=== PATIENT | female | born 1980 | race African-American/Black ===

== ENCOUNTER 2021-12-07 15:46 | Emergency (ER) | payer OTHER ==
[~2021-12-07] VITALS: Ht 172.7 cm; Wt 95.3 kg
[2021-12-07] MEDS ORDERED: PRED50TA PO (17:00)
[2021-12-07] MEDS ORDERED: HYDR-3972 PO (17:00)
[2021-12-07] MEDS ORDERED: HYDROCODONE/APAP 5-325MG TABLET PO ONE (17:15)
[2021-12-07] MEDS ORDERED: predniSONE 50 MG TABLET PO ONE (17:15)
--- NOTE | 2021-12-07 17:15 | NUR ---
Patient discharged to home in stable condition. Written and verbal after care instructions given. Patient verbalizes understanding of instructions. Stressed follow up or return to ER for worsening s/s.
[2021-12-07 17:16] VITALS: BP 132/89
[2021-12-07] MEDS ORDERED: HYDROCODONE/APAP 5-325MG TABLET ONE (17:18)
[2021-12-07] MEDS ORDERED: predniSONE 50 MG TABLET ONE (17:18)
== END 2021-12-07 17:17 | disposition home or self-care (01) ==
LOC: ER 16:00
DX: J45.909 Unspecified asthma, uncomplicated (principal); Z86.16 Personal history of COVID-19
CPT/HCPCS: 99283; J7512; A4663

== ENCOUNTER 2021-12-09 23:09 | Emergency (ER) | payer OTHER ==
[~2021-12-09] VITALS: Ht 165.1 cm; Wt 94.3 kg
[~2021-12-09 23:09] MED LIST: HYDR-3972 PO; PRED50TA PO
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
[2021-12-10] MEDS ORDERED: ONDANSETRON 4 MG/2 ML VIAL IV ONE (00:15)
[2021-12-10] MEDS ORDERED: IV NORMAL SALINE 1000 ML BAG IV ONE ×2 (00:15→02:15)
[2021-12-10] MEDS ORDERED: KETOROLAC TROMETHAMINE 30 MG INJ IVP ONE (00:15)
[2021-12-10 00:37] LABS: HEMATOCRIT 41.3 % (31.2-41.9); MEAN CORPUSCULAR VOLUME 99.2 fL (75.5-95.3); PLATELET COUNT (AUTO) 312 K/uL (179-408)
[2021-12-10 00:40] LABS: *URINE HCG, QUAL NEGATIVE (NEGATIVE)
[2021-12-10 00:44] LABS: ALANINE AMINOTRANSFERASE 80 U/L (14-59); ALKALINE PHOSPHATASE 120 U/L (50-136); ASPARTATE AMINOTRANSFERASE 197 U/L (15-37); BILIRUBIN,DIRECT 0.2 mg/dL (0.0-0.2); BILIRUBIN,TOTAL 0.4 mg/dL (0.2-1.0); CARBON DIOXIDE 26 mmol/L (21-32); CREATININE 0.6 mg/dL (0.6-1.3); GLUCOSE 116 mg/dL (74-106); TOTAL PROTEIN, SERUM 7.6 g/dL (6.4-8.2); UREA NITROGEN, BLOOD 12 mg/dL (7-18)
[2021-12-10 01:12] LABS: CHLORIDE 103 mmol/L (98-107); POTASSIUM 3.6 mmol/L (3.5-5.1)
[2021-12-10] MEDS ORDERED: ONDANSETRON 4 MG/2 ML VIAL ONE ×2 (01:13→01:14)
[2021-12-10] MEDS ORDERED: KETOROLAC TROMETHAMINE 30 MG INJ ONE (01:13)
[2021-12-10] MEDS ORDERED: KETOROLAC TROMETHAMINE 15 MG INJ ONE (01:13)
[2021-12-10] MEDS ORDERED: BENZONATATE 100 MG CAPSULE PO ONE (01:15)
[2021-12-10] MEDS ORDERED: BENZONATATE 100 MG CAPSULE ONE (01:21)
--- NOTE | 2021-12-10 01:32 | NUR ---
Patient in bed, denies any acute distress noted at this time.
[2021-12-10] MEDS ORDERED: MORPHINE SULFATE 4 MG/1 ML DISP.SYRIN IV ONE (01:45)
[2021-12-10] MEDS ORDERED: MORPHINE SULFATE 4 MG/1 ML DISP.SYRIN ONE (01:51)
[2021-12-10] MEDS ORDERED: ONDA4TAB11 PO (03:59)
[2021-12-10] MEDS ORDERED: BENZ-13 PO (03:59)
[2021-12-10 04:13] VITALS: BP 145/88
--- NOTE | 2021-12-10 04:21 | NUR ---
Patient discharged to home in stable condition. Written and verbal after care instructions given. Patient verbalizes understanding of instructions. Stressed follow up or return to ER for worsening s/s. Patient wheeled out via w/c but is able to ambulate with steady gait.
== END 2021-12-10 04:21 | disposition home or self-care (01) ==
LOC: ER 23:10
DX: B34.9 Viral infection, unspecified (principal); Z20.822 Contact with and (suspected) exposure to COVID-19
CPT/HCPCS: 36415; 71045; 80048; 80076; 84703; 85025; 86403; 87070; 87400; 87426; 96361; 96374; 96375; 99284; J1885; J2270; J2405 ×2; U0003; J7030

== ENCOUNTER 2022-01-18 13:11 | Emergency (ER) | payer OTHER ==
[~2022-01-18] VITALS: Ht 165.1 cm; Wt 94.8 kg
[~2022-01-18 13:11] MED LIST changes: +BENZ-13 PO; +ONDA4TAB11 PO
[2022-01-18] MEDS ORDERED: ACETAMINOPHEN 325 MG TABLET PO ONE (14:00)
[2022-01-18] MEDS ORDERED: KETOROLAC TROMETHAMINE 30 MG INJ IM ONE (14:00)
[2022-01-18] MEDS ORDERED: KETOROLAC TROMETHAMINE 30 MG INJ ONE (14:02)
[2022-01-18] MEDS ORDERED: ACETAMINOPHEN ES 500 MG TABLET ONE (14:02)
--- NOTE | 2022-01-18 16:34 | NUR ---
PT WAS EVALUATED BY DR RODRIGUEZ. PT WAS D/C'd TO HOME. D/C INSTRUCTIONS GIVEN TO THE PT BY DR RODRIGUEZ.
[2022-01-18 16:35] VITALS: BP 142/79
[2022-01-18] MEDS ORDERED: NAPR-1009 PO (16:41)
[2022-01-18] MEDS ORDERED: HYDR-4209 PO (16:42)
== END 2022-01-18 16:36 | disposition home or self-care (01) ==
LOC: ER 13:13
DX: S09.90XA Unspecified injury of head, initial encounter (principal); Y04.0XXA Assault by unarmed brawl or fight, initial encounter; Y92.89 Other specified places as the place of occurrence of the external cause; Z85.3 Personal history of malignant neoplasm of breast; Z90.710 Acquired absence of both cervix and uterus
CPT/HCPCS: 70450; 70486; 96372; 99285; J1885; A4663; A9150

== ENCOUNTER 2022-01-21 23:58 | Inpatient (IN) | payer OTHER ==
[~2022-01-21] VITALS: Ht 165.1 cm; Wt 99.3 kg
[~2022-01-21 23:58] MED LIST changes: -BENZ-13 PO; -HYDR-3972 PO; +HYDR-4209 PO; +NAPR-1009 PO; -ONDA4TAB11 PO; -PRED50TA PO
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
[2022-01-22] MEDS ORDERED: ONDANSETRON ODT 4 MG TAB.RAPDIS SL ONE (00:15)
[2022-01-22] MEDS ORDERED: HYDROCODONE/APAP 10-325 MG TABLET PO ONE (00:15)
--- NOTE | 2022-01-22 00:22 | NUR ---
CALLED [facility]. SPOKE TO TAR MAN 727. WILL SEND UNIT TO INTERVIEW PT.
[2022-01-22] MEDS ORDERED: HYDROCODONE/APAP 10-325 MG TABLET ONE (00:23)
[2022-01-22] MEDS ORDERED: ONDANSETRON ODT 4 MG TAB.RAPDIS ONE (00:23)
[2022-01-22] MEDS ORDERED: HYDR-4209 PO (00:31)
--- NOTE | 2022-01-22 00:33 | NUR ---
Pt back from CT
[2022-01-22] MEDS ORDERED: ONDANSETRON 4 MG/2 ML VIAL IV ONE ×2 (01:00→03:45)
[2022-01-22] MEDS ORDERED: MORPHINE SULFATE 2 MG/1 ML DISP.SYRIN IV ONE (01:00)
[2022-01-22] MEDS ORDERED: MORPHINE SULFATE 4 MG/1 ML DISP.SYRIN ONE (01:23)
[2022-01-22] MEDS ORDERED: ONDANSETRON 4 MG/2 ML VIAL ONE ×2 (01:23→03:55)
[2022-01-22 01:32] LABS: HEMATOCRIT 40.7 % (31.2-41.9); MEAN CORPUSCULAR HEMOGLOBIN 33.6 uug (24.7-32.8); MEAN CORPUSCULAR VOLUME 99.2 fL (75.5-95.3); PLATELET COUNT (AUTO) 268 K/uL (179-408)
[2022-01-22 01:37] LABS: ETHANOL 159 MG/DL (0-0)
[2022-01-22 01:55] LABS: ALANINE AMINOTRANSFERASE 54 U/L (14-59); ALKALINE PHOSPHATASE 93 U/L (50-136); ASPARTATE AMINOTRANSFERASE 71 U/L (15-37); BILIRUBIN,DIRECT 0.1 mg/dL (0.0-0.2); BILIRUBIN,TOTAL 0.3 mg/dL (0.2-1.0); CARBON DIOXIDE 26 mmol/L (21-32); CHLORIDE 102 mmol/L (98-107); CREATININE 0.6 mg/dL (0.6-1.3); GLUCOSE 116 mg/dL (74-106); POTASSIUM 3.5 mmol/L (3.5-5.1); TOTAL PROTEIN, SERUM 7.7 g/dL (6.4-8.2); UREA NITROGEN, BLOOD 10 mg/dL (7-18)
[2022-01-22] MEDS ORDERED: ACETAMINOPHEN ES 500 MG TABLET PO ONE (02:15)
--- NOTE | 2022-01-22 02:19 | NUR ---
Dr. Murillo on Panel call from [facility] Dr. Pace
[2022-01-22] MEDS ORDERED: ACETAMINOPHEN ES 500 MG TABLET ONE (02:25)
[2022-01-22] MEDS ORDERED: levETIRAcetam IV 500 MG in IV DEXTROSE 5% 100 ML IV ONE (02:30)
[2022-01-22] MEDS ORDERED: levETIRAcetam 500 MG/5 ML VIAL IV ONE (02:40)
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
--- NOTE | 2022-01-22 03:09 | NUR ---
Funeral Limousine Driver Gentry dave #: [id number], unit number [id number]
[2022-01-22] MEDS ORDERED: HYDROMORPHONE 1 MG/1 ML DISP.SYRIN IV ONE ×2 (03:45→08:45)
[2022-01-22] MEDS ORDERED: HYDROMORPHONE 1 MG/1 ML DISP.SYRIN ONE ×2 (03:55→08:56)
--- NOTE | 2022-01-22 07:02 | NUR ---
Handoff report given to Mitzy PINA
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
--- NOTE | 2022-01-22 07:14 | NUR ---
RECIEVED PT IN BED, RESTING, VSS. WILL CONTINUE TO MONITOR THE PT.
--- NOTE | 2022-01-22 09:04 | NUR ---
CALLED [facility] TRANSFER FOR FOLLOW UP, LEFT A MESSAGE WITH ANSWERING MACHINE.
--- NOTE | 2022-01-22 09:30 | NUR ---
PT AWAKE, AXOX4, NO CHANGE IN NEURO STATUS
--- NOTE | 2022-01-22 10:20 | NUR ---
CALLED DR. CALLE AT HIS CELL [phone] AND LEFT A MESSAGE PER PAIGE HOROWITZ REQUEST.
--- NOTE | 2022-01-22 10:23 | NUR ---
CALLED [facility] AND LEFT A MESSAGE IN THE ANSWERING MESSAGE.
--- NOTE | 2022-01-22 10:58 | NUR ---
DASHA FROM [facility] TRANSFER CENTER CALLED AND SAID THAT THEY ARE NOT THE ONE TO AUTHORIZE THE TRANSFER, REFERRED THE CALL TO [employer] PU[employer] TECHNICIAN TO MAKE SURE THAT THE MESSAGE IS RELAYED
--- NOTE | 2022-01-22 11:00 | NUR ---
Received telephone call from Bonita from [facility] transfer center who stated they are at capacity and do not have any beds available for the pt at this time.
--- NOTE | 2022-01-22 11:06 | NUR ---
CALLED [facility] LEFT A MESSAGE REGARDING ADMITTING THE PT.
--- NOTE | 2022-01-22 11:06 | NUR ---
Received telephone call from Eda from [facility] who also stated they are at [facility] and do not have any beds available at this time.
[2022-01-22] MEDS ORDERED: ACETAMINOPHEN 325 MG TABLET PO PRN (11:30)
[2022-01-22] MEDS ORDERED: REMEDY ESSENTIAL ZINC PASTE 113 GM TP PRN (11:30)
[2022-01-22] MEDS ORDERED: MAGNESIUM HYDROXIDE 30 ML LIQUID UDC PO PRN (11:30)
--- NOTE | 2022-01-22 12:43 | NUR ---
pt transfered to floor in stable condition.
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
[2022-01-22] MEDS: HYDROMORPHONE 1 MG/1 ML DISP.SYRIN IV PRN ×3 (13:00→21:13)
[2022-01-22 13:25] VITALS: BP 120/79
--- NOTE | 2022-01-22 15:30 | NUR ---
SEEN BY DR CURRY FOR NEURO FOLLOW-UP WITH ORDER FOR FOLLOW-UP CT HEAD W/O CONTRAST IN AM FOR FURTHER MANAGEMENT. C/ OF NAUSEA, MEDICATED WITH ZOFRAN WITH GOOD RELIEF
[2022-01-22] MEDS: ONDANSETRON 4 MG/2 ML VIAL IV PRN (15:47)
[2022-01-22 16:00] VITALS: BP 121/68
--- NOTE | 2022-01-22 16:00 | NUR ---
PATIENT UP ON BEDSIDE COMMODE ABLE TO VOID VOLUNTARILY.
[2022-01-22 20:00] VITALS: BP 148/86
[2022-01-22] MEDS: levETIRAcetam IV 1,000 MG in IV DEXTROSE 5% 100 ML IV SCH (21:12)
[2022-01-22 22:00] VITALS: BP 128/80
--- NOTE | 2022-01-22 22:30 | NUR ---
[facility] Abhinav Ku called; updated with transfer; will call again for bed availability and insurance approval.
[2022-01-22] MEDS: HYDROCODONE/APAP 5-325MG TABLET PO PRN (23:36)
[2022-01-23] VITALS (7 sets, daily range): BP systolic 120–160; BP diastolic 60–96
[2022-01-23] MEDS: ONDANSETRON 4 MG/2 ML VIAL IV PRN ×2 (00:46→21:12)
[2022-01-23] MEDS: HYDROMORPHONE 1 MG/1 ML DISP.SYRIN IV PRN ×7 (00:46→21:12)
[2022-01-23] MEDS: HYDROCODONE/APAP 5-325MG TABLET PO PRN ×5 (05:12→21:12)
[2022-01-23 06:21] LABS: HEMATOCRIT 38.1 % (31.2-41.9); MEAN CORPUSCULAR HEMOGLOBIN 33.8 uug (24.7-32.8); MEAN CORPUSCULAR VOLUME 101.6 fL (75.5-95.3); PLATELET COUNT (AUTO) 257 K/uL (179-408)
[2022-01-23 06:42] LABS: CREATININE 0.7 mg/dL (0.6-1.3)
--- NOTE | 2022-01-23 08:00 | NUR ---
SEEN BY HOSPITALIST FOR FOLLOW-UP SEE NOTES. PATIENT STILL C/O ON AND OFF HEADACHE MORE ON THE RIGHT SIDE 8-9/10 PAIN LEVEL. NO NAUSEA AND VOMITING. BP WNL. NO SOB. CONTINUE NEURO OBSERVATION AND PAIN MANAGEMENT
[2022-01-23] MEDS: levETIRAcetam IV 1,000 MG in IV DEXTROSE 5% 100 ML IV SCH ×2 (08:20→20:50)
--- NOTE | 2022-01-23 13:03 | NUR ---
AWAITING DR VALDEZ FOR NEURO FOLLOW-UP, CONTINUE WITH PAIN MANAGEMENT
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
--- NOTE | 2022-01-23 16:15 | NUR ---
DR CURRY NOTIFIED REGARDING CT HEAD WITHOUT CONTRAST WITH ORDER TO START PT,OT,ST AND GET SW, CM TO GET INVOLVE FOR PLACEMENT IN PREPARATION FOR FUTURE DISCHARGE. DR CURRY THEN FURTHER SPOKE WITH PATIENT AND SISTER REGINO VIA PHONE REGARDING CT RESULTS AND PLAN OF TREATMENT. PATIENT AND SISTER UNDERSTAND EVERYTHING BEING DISCUSSED ON THE PHONE AND BOTH ARE COOPERATING WITH THE PLAN.
--- NOTE | 2022-01-23 20:00 | NUR ---
Received patient sitting upright in bed. AAOx4. In no apparent distress. Denies any SOB. Complain of pain, ice pack provided at this time. Patient was given both [place] and Dilaudid at 1710 by day shift nurse. Informed patient that this nurse will provide pain medication once its due and states understanding. NSR on tele with HR of 69/min. IV site on left AC intact and patent. Other needs assessed and attended to. Safety measure initiated and call light within reached.
[2022-01-23] MEDS: ATORVASTATIN 40 MG TABLET PO SCH (20:49)
[2022-01-24] VITALS (7 sets, daily range): BP systolic 158–179; BP diastolic 77–106
[2022-01-24] MEDS: HYDROCODONE/APAP 5-325MG TABLET PO PRN ×6 (01:12→21:18)
[2022-01-24] MEDS: HYDROMORPHONE 1 MG/1 ML DISP.SYRIN IV PRN ×6 (01:12→20:56)
[2022-01-24] MEDS: ONDANSETRON 4 MG/2 ML VIAL IV PRN ×3 (05:10→18:26)
--- NOTE | 2022-01-24 05:34 | NUR ---
Patient BP on right arm was 170/92. Patient was complaining of head pain. Dilaudid 1mg and [place] 5/325 PRN per order given. Retake her BP on left arm and was 177/106. Patient also stated that her pain medication is not that effective for her head pain. Patient also informed this nurse that she has Hx of borderline HTN and was taking Amlodipine and Lisinopril off and on for some years and had stop taking both this medication about a year ago. Informed RAIL CAR UNLOADER Morris. Awaiting for any new order.
--- NOTE | 2022-01-24 05:45 | NUR ---
LUL Caceres responded with no new order given.
--- NOTE | 2022-01-24 06:01 | NUR ---
NSR on tele with HR of 71/min. IV site on left AC remains intact and patent. Ice compress provided for head pain as well. Needs attended to and met. Assisted to BSC PRN. Safety measure maintained and call light within reached.
[2022-01-24 06:53] LABS: HEMATOCRIT 37.7 % (31.2-41.9); MEAN CORPUSCULAR HEMOGLOBIN 33.8 uug (24.7-32.8); MEAN CORPUSCULAR VOLUME 100.7 fL (75.5-95.3); PLATELET COUNT (AUTO) 244 K/uL (179-408)
[2022-01-24 07:17] LABS: CARBON DIOXIDE 27 mmol/L (21-32); CHLORIDE 99 mmol/L (98-107); CREATININE 0.6 mg/dL (0.6-1.3); GLUCOSE 121 mg/dL (74-106); MAGNESIUM 1.9 mg/dL (1.8-2.4); PHOSPHOROUS 2.6 mg/dL (2.5-4.9); POTASSIUM 3.8 mmol/L (3.5-5.1); UREA NITROGEN, BLOOD 9 mg/dL (7-18)
[2022-01-24] MEDS: levETIRAcetam IV 1,000 MG in IV DEXTROSE 5% 100 ML IV SCH (09:51)
[2022-01-24] MEDS ORDERED: hydrALAZINE HCL 25 MG TABLET PO ONE (13:00)
[2022-01-24] MEDS ORDERED: hydrALAZINE HCL 10 MG TABLET PO ONE (13:15)
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
--- NOTE | 2022-01-24 19:00 | NUR ---
Patient has elevated BP Aruna Nicole NP aware, patient still has headache pains and wanted more pain meds, Bonnie MCCARTY okeyed to give Dilaudin 1mg IV and [place] 1 tab po for pain, Patient asleep but arousable, cont to monitor.
--- NOTE | 2022-01-24 19:45 | NUR ---
Patient alert oriented, no sob no chest pain, tele monitor sinus rhythm, patient sbp elevated Aruna Nicole aware, orderd Norvasc 5mg po, patient on continue pain management, complain of headaches, will medicate as ordere, patient has change of LOC, cont to monitor.
[2022-01-24] MEDS: AMLODIPINE 5 MG TABLET PO SCH (19:53)
[2022-01-24] MEDS: ATORVASTATIN 40 MG TABLET PO SCH (20:03)
[2022-01-24] MEDS: levETIRAcetam 500 MG TABLET PO SCH (20:03)
[2022-01-25] VITALS (7 sets, daily range): BP systolic 130–179; BP diastolic 56–112
--- NOTE | 2022-01-25 01:05 | NUR ---
Patient is hard stick, notify Jason Caceres manager inpatient with order for midline insertion.
[2022-01-25] MEDS: HYDROMORPHONE 1 MG/1 ML DISP.SYRIN IV PRN ×6 (01:28→21:32)
[2022-01-25] MEDS: HYDROCODONE/APAP 5-325MG TABLET PO PRN ×6 (02:38→21:32)
--- NOTE | 2022-01-25 08:00 | NUR ---
RECEIVED PATIENT IN BED AWAKE ALERT AND ORIENTED X3, DENIES PAIN OR DISTRESS, ON AMIODARONE DRIP FOR RVR NOW AT 0.5MG/MIN. PATIENT STILL ON IN AND OUT SR/AFIB CONTROLLED. NPO OBSERVED FOR SURGERY RIGHT MALLEOLUS UNDER DR KIDD Addendum: 01/25/22 at 0908 by JOHN LAW RN ERROR
[2022-01-25] MEDS: AMLODIPINE 5 MG TABLET PO SCH (08:02)
[2022-01-25] MEDS: levETIRAcetam 500 MG TABLET PO SCH ×2 (08:02→21:28)
[2022-01-25] MEDS: ONDANSETRON 4 MG/2 ML VIAL IV PRN ×2 (08:38→15:57)
--- NOTE | 2022-01-25 10:17 | NUR ---
Patient left unit for CT Scan w/out contrast. Tele box still with patient.
--- NOTE | 2022-01-25 10:32 | NUR ---
Patient returned from CT Scan without contrast.
[2022-01-25] MEDS: SENNOSIDES/DOCUSATE SODIUM TABLET PO SCH (10:45)
[2022-01-25] MEDS ORDERED: hydrALAZINE HCL 50 MG TABLET PO SCH (12:30)
[2022-01-25] MEDS ORDERED: hydrALAZINE HCL 20 MG/1 ML VIAL IV PRN (12:30)
--- NOTE | 2022-01-25 14:00 | NUR ---
RESULTS OF CT HEAD NOTED BY HOSPITALIST SEE NOTES
[2022-01-25] MEDS: hydrALAZINE HCL 20 MG/1 ML VIAL IV PRN (16:26)
[2022-01-25] MEDS: DEXAMETHASONE 4 MG TABLET PO SCH (17:10)
--- NOTE | 2022-01-25 18:00 | NUR ---
LATEST BP 141/79, HOSPITALIST NOTIFIED OF HEADACHE 08/09, DILAUDID 2MG IV X1 GIVEN. OBSERVED. SR ON MONITOR
[2022-01-25] MEDS ORDERED: HYDROMORPHONE 2 MG/1 ML DISP.SYRIN IV ONE (18:30)
--- NOTE | 2022-01-25 19:35 | NUR ---
RECEIVED PATIENT ASLEEP BUT AROUSABLE, ALERT ORIENTED, NO CHANGE OF LOC, NO SOB NO CHEST PAIN, TELE MONITOR SINUS RHYTHM, CONT PAIN MANAGEMENT DUE TO HEADACHES, VS STABLE, CONT TO MONITOR.
[2022-01-25] MEDS: ATORVASTATIN 40 MG TABLET PO SCH (21:28)
--- NOTE | 2022-01-25 22:00 | NUR ---
NICO FROM [facility] ASK FOR UPDATE REGARDING PATIENT PRESENT NEURO CONDITION, STATED THAT STILL NO BEDS FOR THE PATIENT, AND REQUESTING TO ASK MD TO DO DISCHARGE SUMMARY, WILL ENDORSE IN AM.
[2022-01-26 00:19] VITALS: BP 154/90
[2022-01-26] MEDS: hydrALAZINE HCL 20 MG/1 ML VIAL IV PRN (01:39)
--- NOTE | 2022-01-26 01:39 | NUR ---
PATIENT HAS ELEVATED BP 1166/96 GIVEN APRESOLINE 20 MG IV, NO NAUSEA NO VOMITING. CONT ON PAIN MANAGEMENT, DUE TO HEADACHES, CONT TO MONITOR. Addendum: 01/26/22 at 0519 by TRUDI TERRY RN PATIENT HAS ELEVATED BP 1166/96 GIVEN APRESOLINE 20 MG IV, NO NAUSEA NO VOMITING. CONT ON PAIN MANAGEMENT, DUE TO HEADACHES, CONT TO MONITOR. CHARTING IN ERROR
[2022-01-26] MEDS: HYDROMORPHONE 1 MG/1 ML DISP.SYRIN IV PRN ×5 (01:40→21:08)
[2022-01-26] MEDS: HYDROCODONE/APAP 5-325MG TABLET PO PRN ×4 (01:40→21:07)
--- NOTE | 2022-01-26 01:59 | NUR ---
PATIENT HAS ELEVATED BP 166/96 GIVEN APRESOLINE 20 MG IV, NO NAUSEA NO VOMITING. CONT ON PAIN MANAGEMENT, DUE TO HEADACHES, CONT TO MONITOR
[2022-01-26 04:30] VITALS: BP 141/75
--- NOTE | 2022-01-26 05:21 | NUR ---
PATIENT ASLEEP BUT AROUSABLE, NO SOB NO CHEST PAIN, TELE SINUS RHYTHM, CONT PAIN MANAGEMENT DUE TO HEADACHES, BP STABLE, 141/75, NO N/V NOTED, CONT TO MONITOR.
--- NOTE | 2022-01-26 06:51 | NUR ---
PATIENT ALERT ORIENTED, NO SOB NO CHEST PAIN, TELE MONITOR SINUS RHYTHM, BP STABLE, SLEPT MOST OF THE NIGHT, PATIENT COMPLAIN OF PAIN, STATE THAT 1MG DILAUDID NOT EFFECTIVE, NOTIFY RYAN MTZ ARCHIVES TECHNICIAN WITH NO NEW ORDER, NOTIFY THE PATIENT, WILL ENDORSE TO NEXT SHIFT. NO CHANGE OF LOC, CONT ON ICE PACK PLACE ON HEAD.
--- NOTE | 2022-01-26 07:00 | NUR ---
PATIENT RESTING IN BED AWAKE ALERT AND VERBALLY RESPONSIVE, NO SIGNS OF DISTRESS BUT CONTINUE C/O HEADACHE, CONTINUE WITH PAIN MANAGEMENT. SR ON MONITOR
[2022-01-26 08:00] VITALS: BP 158/82
[2022-01-26] MEDS: SENNOSIDES/DOCUSATE SODIUM TABLET PO SCH (08:06)
[2022-01-26] MEDS: levETIRAcetam 500 MG TABLET PO SCH ×2 (08:06→21:07)
[2022-01-26] MEDS: DEXAMETHASONE 4 MG TABLET PO SCH (08:07)
[2022-01-26] MEDS: AMLODIPINE 5 MG TABLET PO SCH (08:18)
--- NOTE | 2022-01-26 08:52 | NUR ---
SEEN BY Avani JIMENEZ DNP FOR MEDICAL FOLLOW-UP WITH NEW ORDERS. SEE NOTES
[2022-01-26] MEDS: hydrALAZINE HCL 50 MG TABLET PO SCH ×3 (09:13→21:06)
--- NOTE | 2022-01-26 11:00 | NUR ---
AMBULATED FROM BED DOWN TO PATIENT DOOR NO DIZZINESS, N/V BUT TOLERABLE HEADACHE. SEEN BY JARRETT DNP CHANGED STATUS TO MED/SURG
[2022-01-26 11:41] VITALS: BP 145/80
[2022-01-26 15:37] VITALS: BP 149/87
--- NOTE | 2022-01-26 17:52 | NUR ---
RESTING COMFORTABLY IN BED, NO ACUTE DISTRESS. CONTINUE WITH PAIN MANAGEMENT
[2022-01-26] MEDS: ATORVASTATIN 40 MG TABLET PO SCH (21:07)
[2022-01-26] MEDS: ONDANSETRON 4 MG/2 ML VIAL IV PRN (22:09)
--- NOTE | 2022-01-26 22:30 | NUR ---
Assumed care of patient from SILVANA Zuluaga. Patient AAOx4. In no apparent distress. Cold compress to back of head and pain medication Dilaudid 1mg and [place] 5/325mg was provided by SILVANA Zuluaga at 2108. Midline on left upper arm intact and patent. Needs assessed and attended to. Safety measure initiated and call light within reach.
--- NOTE | 2022-01-26 23:53 | NUR ---
Patient asking for more pain medication, stated that she wanted to sleep early and wants to get her next pain medication now. Informed patient that her last dose was given at 2108 and medication can only be given every 4 hrs PRN. Patient got upset and still insisting to get pain medication now. Offered more ice compress and informed LUL Nicole. LUL Nicole okay to give pain medication 30 mins. early from the next due time. Informed patient and states understanding.
[2022-01-27] MEDS: HYDROCODONE/APAP 5-325MG TABLET PO PRN ×6 (00:30→21:24)
[2022-01-27] MEDS: HYDROMORPHONE 1 MG/1 ML DISP.SYRIN IV PRN ×6 (00:31→21:03)
[2022-01-27 04:30] VITALS: BP 126/64
[2022-01-27] MEDS: hydrALAZINE HCL 50 MG TABLET PO SCH ×3 (05:59→22:40)
--- NOTE | 2022-01-27 06:10 | NUR ---
Patient remains AOx4. Dilaudid 1mg via IV and [place] 5/325mg PO given PRN per order for complain of head pain. Ice compress provided as well. Needs attended to and met. Safety measure maintained and call light within reached.
--- NOTE | 2022-01-27 08:34 | NUR ---
RECEIVED PATIENT IN BED AWAKE ALERT AND ORIENTED C/O HAVING SEVERE PAIN IN HER HEAD MEDICATED WITH NORCO AND DILAUDID ORDERED ICE PACK IS IN USE AT THIS TIME LEFT UPPER ARM MID LINE IS INTACT WITH NO S/S OF INFILTERATION NOTED ON SITE PATIENT STATED HAS DESIRE TO BE TRANSFERED TO [facility] NOTIFIED HER THAT I WILL INFORM THE DOCTOR AND THE PHOTOENGRAVING FINISHER MADE COMFORTABLE WILL CONTINUE TO OBSERVE.
[2022-01-27] MEDS: SENNOSIDES/DOCUSATE SODIUM TABLET PO SCH (08:35)
[2022-01-27] MEDS: DEXAMETHASONE 4 MG TABLET PO SCH (08:35)
[2022-01-27] MEDS: levETIRAcetam 500 MG TABLET PO SCH ×2 (08:35→21:01)
[2022-01-27] MEDS: AMLODIPINE 5 MG TABLET PO SCH (08:41)
--- NOTE | 2022-01-27 10:30 | NUR ---
DR ELLEN JIMENEZ HERE AND SEEN PATIENT STATED WILL ARRANGE FOR PAIN MANAGEMENT DOCTOR TO SEE PATIENT SHE WANTS PAIN MEDICATIONS AROUND THE CLOCK AND STILL STATING THAT SHE NEEDS MORE MEDS.
[2022-01-27 11:55] VITALS: BP 137/72
--- NOTE | 2022-01-27 14:46 | NUR ---
Clinical Social Work Note SW met with patient and mother to discuss discharge planning. SW explained to patient and mother that patient's request to be transferred to [facility] for pain management was not be able to be done since pain management can be done at the hospital. Patient and mother stated that they understood but patient stated that she has been verbalizing her pain but no one has listened to her. Patient's mother asked if they could speak to a supervisor turkey farm about it. SW called director of unit, Luzmaria Forrester, to assist patient and mother with their complaint.
[2022-01-27 15:43] VITALS: BP 131/75
--- NOTE | 2022-01-27 16:42 | NUR ---
PATIENT MEDICATED FOR PAIN HEADACHE ORDERED ICE PACK IS IN USE AND HELPFUL ON ROOM AIR WITH NO SHORTNESS OF BREATH AT THIS TIME ABLE TO AMBULATE WITH MIN ASSIST WAS SEEN BY THE PHYSICAL THERAPIST FOR EVALUATION SEE NOTES WILL CONTINUE TO OBSERVE.
[2022-01-27 20:00] VITALS: BP 114/68
[2022-01-27] MEDS: ATORVASTATIN 40 MG TABLET PO SCH (21:01)
[2022-01-28] MEDS: HYDROCODONE/APAP 5-325MG TABLET PO PRN ×4 (01:32→15:35)
[2022-01-28] MEDS: HYDROMORPHONE 1 MG/1 ML DISP.SYRIN IV PRN ×5 (01:35→15:35)
[2022-01-28] MEDS: hydrALAZINE HCL 50 MG TABLET PO SCH ×2 (05:58→14:51)
--- NOTE | 2022-01-28 06:57 | NUR ---
Pt was pleasant. NO neuro deficits, noted. Requested pain medications 3 times, with good relief reported, blood pressure remains within normal limits, call light in reach.
--- NOTE | 2022-01-28 07:15 | NUR ---
RECEIVED PATIENT IN BED HALF ASLEEP SEEMS COMFORTABLE AT THIS TIME OPENS EYES AND ANSWERS QUESTIONS AND THEN CLOSES AND FALLS ASLEEP ON ROOM AIR WITH NO SHORTNESS OF BREATHS AT THIS TIME CALL LIGHTS AND HER PERSONAL BELONGINGS ARE WITHIN EASY REACH WILL CONTINUE TO OBSERVE AND PROVIDE COMFORT.
[2022-01-28] MEDS ORDERED: ENSURE ENLIVE (VAN) 240 ML LIQUID PO SCH (09:00)
[2022-01-28] MEDS: DEXAMETHASONE 4 MG TABLET PO SCH (09:07)
[2022-01-28] MEDS: SENNOSIDES/DOCUSATE SODIUM TABLET PO SCH (09:07)
[2022-01-28] MEDS: levETIRAcetam 500 MG TABLET PO SCH (09:07)
[2022-01-28] MEDS: AMLODIPINE 5 MG TABLET PO SCH (09:08)
--- NOTE | 2022-01-28 10:15 | NUR ---
PATIENT WAS GIVEN ONE MG DILAUDID PLUS NORCO ORDERED AND SHE IS ASKING FOR ANOTHER DOSE OF DILAUDID TOLD HER THAT I NEEDED TO GET ANOTHER ORDER SO I NOTIFIED MICHAELA BRYSON SEWING MACHINE OPERATOR PAPER BAGS WITH NO NEW ORDERS AT THIS TIME.
--- NOTE | 2022-01-28 11:15 | NUR ---
JOVANNA BRYSON HERE SEEN PATIENT DISCHARGED HER PENDING PLACEMENT.
[2022-01-28] MEDS ORDERED: HYDR-3972 PO (11:24)
[2022-01-28] MEDS ORDERED: HYDR50TA68 PO (11:24)
[2022-01-28] MEDS ORDERED: LEVE500T9 PO (11:24)
[2022-01-28] MEDS ORDERED: SENN1TAB92 PO (11:24)
[2022-01-28] MEDS ORDERED: AMLO-212 PO (11:24)
[2022-01-28] MEDS ORDERED: DEXA4TAB2 PO (11:24)
[2022-01-28] MEDS ORDERED: ATOR40TA PO (11:24)
--- NOTE | 2022-01-28 11:29 | NUR ---
PER JOVANNA SHE WILL PLACE AN ORDER FOR A ONE TIME DILAUDID EXTRA AT 12NOON PATIENT AWARE.
[2022-01-28 11:48] VITALS: BP 133/72
[2022-01-28] MEDS ORDERED: HYDROMORPHONE 1 MG/1 ML DISP.SYRIN IV ONE (12:00)
--- NOTE | 2022-01-28 12:00 | NUR ---
DILAUDID ONE MG GIVEN EXTRA DOSE AT THIS TIME
--- NOTE | 2022-01-28 13:20 | NUR ---
CALL RECEIVED FROM SAMINA AND STATED SHE WAS TRYING TO CALL PATIENT BUT WAS UNABLE TO REACH HER SO I CONNECTED THE PATIENT WITH SAMINA AND SAMINA NOTIFIED THE PATIENT THAT SHE IS DISCHARGED FROM THE HOSPITAL AND SHE WILL NEED TO CALL FOR A RIDE PATIENT STATED THAT SHE WILL NEED TO CALL HER SISTER TO CONFIRM WITH HER THAT SHE COULD GO HOME TODAY SO I PROVIDED THE PATIENT WITH [employer] PHONE NUMBER SO HER SISTER COULD CALL HER.
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
[2022-01-28 16:00] VITALS: BP 129/72
--- NOTE | 2022-01-28 16:30 | NUR ---
PATIENT DISCHARGED TAKEN DOWN BY W/CHAIR WITH ALL HER PERSONAL BELONGINGS MID LINE REMOVED PATIENT INSTRUCTED TO FREIGHT FORWARDER HER MEDICATIONS FROM [facility] AND TO FOLLOW UP WITH HER PRIMARY DOCTOR WITHIN THE NEXT ONE TO TWO WEEKS AND SHE EXPRESSED UNDERSTANDING HER NORCO PRESCRIPTIONS WAS ALSO GIVEN TO HER PHYSICALLY.PATIENT DISCHARGED IN SATISFACTORY CONDITION.
[2022-01-28] MEDS ORDERED: GABAPENTIN 300 MG CAPSULE PO SCH (17:00)
== END 2022-01-28 16:30 | disposition home health service (06) | DRG 86 ==
LOC: ER 01-22 → TRANSITION 01-22 12:16 → TELE-TD3 01-22 12:27 → MEDSURG3 01-26 08:50
PROVIDERS: ADMIT Nurse Practitioner Acute Care; ATTEND Nurse Practitioner Acute Care
PROC: 05H633Z Insertion of Infusion Device into Left Subclavian Vein, Percutaneous Approach (ICD-10-PCS; principal; 2022-01-25)
PROC: B547ZZA Ultrasonography of Left Subclavian Vein, Guidance (ICD-10-PCS; 2022-01-25)
DX: S06.5X0A Traumatic subdural hemorrhage without loss of consciousness, initial encounter (principal); D68.69 Other thrombophilia; Y04.2XXA Assault by strike against or bumped into by another person, initial encounter; Y92.012 Bathroom of single-family (private) house as the place of occurrence of the external cause; E66.01 Morbid (severe) obesity due to excess calories; E78.5 Hyperlipidemia, unspecified; Z20.822 Contact with and (suspected) exposure to COVID-19; Z85.3 Personal history of malignant neoplasm of breast; Z90.710 Acquired absence of both cervix and uterus; Z68.36 Body mass index [BMI] 36.0-36.9, adult; R40.2362 Coma scale, best motor response, obeys commands, at arrival to emergency department; R40.2142 Coma scale, eyes open, spontaneous, at arrival to emergency department; R40.2252 Coma scale, best verbal response, oriented, at arrival to emergency department; F10.10 Alcohol abuse, uncomplicated; Y90.6 Blood alcohol level of 120-199 mg/100 ml
CPT/HCPCS: 36415; 70450; 70480; 72125; 83735; 84100; 85025; 85730; 97161; A4663; A9150; G0378; G0480; J0360; J1170; J1953; J2270; J2405; J7050; J7060; J8540; Q0162

== ENCOUNTER 2023-09-27 11:34 | Emergency (ER) | payer OTHER ==
[~2023-09-27] VITALS: Ht 165.1 cm; Wt 81.6 kg
[~2023-09-27 11:34] MED LIST changes: +AMLO-212 PO; +ATOR40TA PO; +DEXA4TAB2 PO; +HYDR-3972 PO; +HYDR50TA68 PO; +LEVE500T9 PO; +SENN1TAB92 PO
[2023-09-27] MEDS ORDERED: HYDR-4209 PO (14:42)
[2023-09-27] MEDS ORDERED: SULF1TAB48 PO (14:42)
[2023-09-27 14:53] VITALS: BP 139/85; O2SAT 99
== END 2023-09-27 14:54 | disposition home or self-care (01) ==
LOC: ER 11:36
DX: M79.671 Pain in right foot (principal); Z90.710 Acquired absence of both cervix and uterus; Z79.899 Other long term (current) drug therapy
CPT/HCPCS: 73630; A4606; A4663

== ENCOUNTER 2023-10-29 08:21 | Emergency (ER) | payer OTHER ==
[~2023-10-29] VITALS: Ht 165.1 cm; Wt 81.6 kg
[~2023-10-29 08:21] MED LIST changes: +SULF1TAB48 PO
[2023-10-29] MEDS ORDERED: LIDOCAINE HCL 1% 20 ML VIAL ONE (08:59)
[2023-10-29] MEDS ORDERED: LIDOCAINE HCL 1% 20 ML VIAL IJ ONE (09:00)
[2023-10-29] MEDS ORDERED: SULF1TAB48 PO (09:13)
[2023-10-29] MEDS ORDERED: HYDR-3980 PO (09:13)
[2023-10-29 09:24] VITALS: BP 137/88; O2SAT 97
== END 2023-10-29 09:34 | disposition home or self-care (01) ==
LOC: ER 08:21
DX: L02.31 Cutaneous abscess of buttock (principal); B95.62 Methicillin resistant Staphylococcus aureus infection as the cause of diseases classified elsewhere; Z90.710 Acquired absence of both cervix and uterus; Z79.899 Other long term (current) drug therapy
CPT/HCPCS: 99283; 10060; J3490; A4606; A4663

== ENCOUNTER 2023-11-02 18:06 | Inpatient (IN) | payer OTHER ==
[~2023-11-02] VITALS: Ht 165.1 cm; Wt 100.7 kg
[~2023-11-02 18:06] MED LIST changes: +HYDR-3980 PO
[2023-11-02] MEDS ORDERED: IV NORMAL SALINE 1000 ML BAG IV ONE (18:15)
[2023-11-02 18:28] LABS: BASOPHILS % (AUTO) 0.4 % (0.0-2.0); EOSINOPHILS # (AUTO) 0.1 K/uL (0.0-0.7); EOSINOPHILS % (AUTO) 0.5 % (0.0-7.0); HEMATOCRIT 44.2 % (31.2-41.9); HEMOGLOBIN 14.3 g/dL (10.9-14.3); LYMPHOCYTES # (AUTO) 3.5 K/uL (0.8-4.8); LYMPHOCYTES % (AUTO) 32.5 % (20.5-51.5); MEAN CORPUSCULAR HGB CONC 32 g/dL (32.3-35.6); MEAN CORPUSCULAR VOLUME 89.5 fL (75.5-95.3); MONOCYTES # (AUTO) 0.9 K/uL (0.1-1.30); MONOCYTES % (AUTO) 8.2 % (0.0-11.0); NEUTROPHILS # (AUTO) 6.3 K/uL (1.8-8.9); NEUTROPHILS % (AUTO) 58.4 % (38.5-71.5); PLATELET COUNT (AUTO) 257 K/uL (179-408); RED BLOOD CELL COUNT(AUTO) 4.94 MIL/uL (3.63-4.92); RED CELL DISTRIBUTION WIDTH 16.5 % (12.3-17.7); WHITE BLOOD COUNT (AUTO) 10.8 K/uL (3.8-11.8)
[2023-11-02 18:29] LABS: DIFFERENTIAL COMMENT 1
[2023-11-02] MEDS ORDERED: ACETAMINOPHEN ES 500 MG TABLET PO ONE (18:30)
[2023-11-02 18:43] LABS: MAGNESIUM 2.2 mg/dL (1.8-2.4); PHOSPHOROUS 4.3 mg/dL (2.5-4.9)
[2023-11-02 18:44] LABS: CALCIUM 10.3 mg/dL (8.5-10.1); CARBON DIOXIDE 12 mmol/L (21-32); CHLORIDE 91 mmol/L (98-107); CREATININE 1.5 mg/dL (0.6-1.3); POTASSIUM 4.9 mmol/L (3.5-5.1); SODIUM SERUM 127 mmol/L (136-145); UREA NITROGEN, BLOOD 15 mg/dL (7-18)
[2023-11-02 18:49] LABS: ALANINE AMINOTRANSFERASE 21 U/L (14-59); ALBUMIN 3.6 g/dL (3.4-5.0); ALKALINE PHOSPHATASE 124 U/L (50-136); ASPARTATE AMINOTRANSFERASE 11 U/L (15-37); BILIRUBIN,DIRECT 0.2 mg/dL (0.0-0.2); BILIRUBIN,TOTAL 0.5 mg/dL (0.2-1.0); LIPASE 21 U/L (16-77)
[2023-11-02 18:50] LABS: GLUCOSE 626 mg/dL (74-106)
[2023-11-02 18:51] LABS: PREGNANCY TEST SERUM QUAN 1 miul/L (0-6)
[2023-11-02 18:57] LABS: ACETONE, SERUM MODERATE (NEGATIVE)
[2023-11-02] MEDS ORDERED: INSULIN REGULAR, HUMAN 100 UNIT in IV NORMAL SALINE 99 ML IV ONE ×2 (19:00)
[2023-11-02] MEDS ORDERED: IV LACTATED RINGERS SOLUTION 1,000 ML IV ONE (19:00)
[2023-11-02] MEDS ORDERED: ONDANSETRON 4 MG/2 ML VIAL ONE (19:03)
[2023-11-02] MEDS ORDERED: MORPHINE SULFATE 4 MG/1 ML DISP.SYRIN ONE (19:04)
[2023-11-02 19:08] LABS: *CLARITY,URINE CLEAR (CLEAR); *COLOR,URINE YELLOW (YELLOW); *KETONES,URINE 3+ (NEGATIVE); *PROTEIN,URINE 1+ (NEGATIVE); *UROBILINOGEN,URINE 0.2 E.U./dl (NORMAL); LEUKOCYTE ESTERASE ,URINE NEGATIVE (NEGATIVE); NITRITE, URINE NEGATIVE (NEGATIVE)
[2023-11-02 19:10] LABS: *BILIRUBIN,URIN 2+ (NEGATIVE); *BLOOD, URINE NEGATIVE (NEGATIVE); UGLUCOSE 2+ (NEGATIVE)
[2023-11-02 19:11] LABS: RBC,URINE 0-3 /HPF (0-3); WBC,URINE 0-3 /HPF (0-3)
[2023-11-02] MEDS ORDERED: MORPHINE SULFATE 4 MG/1 ML DISP.SYRIN IV ONE (19:15)
[2023-11-02] MEDS ORDERED: ONDANSETRON 4 MG/2 ML VIAL IV ONE (19:15)
[2023-11-02 19:20] LABS: SITE, VBG RIGHT RADIAL; VBG AaDO2 95.4 mmHg; VBG BASE EXCESS -12.8 mmol/L (-3-3); VBG HCO3 12.5 mmol/L (22-27); VBG MetHb 0.3 % (0.0-0.5); VBG O2HB 93.7 %; VBG PCO2 27.9 mmHg (38.0-51.0); VBG PH 7.269 (7.310-7.450); VBG PO2 85.5 mmHg (25.0-35.0); VBG TOTAL HEMOGLOBIN 14.3 G/dL (12.0-16.0)
[2023-11-02] MEDS ORDERED: diphenhydrAMINE 50 MG/1 ML VIAL IV ONE (20:00)
[2023-11-02] MEDS ORDERED: METOCLOPRAMIDE HCL 10 MG/2 ML VIAL IV ONE (20:00)
[2023-11-02] MEDS ORDERED: diphenhydrAMINE 50 MG/1 ML VIAL ONE (20:38)
[2023-11-02] MEDS ORDERED: METOCLOPRAMIDE HCL 10 MG/2 ML VIAL ONE (20:38)
[2023-11-02] MEDS ORDERED: INSULIN REGULAR, HUMAN 100 UNIT in IV NORMAL SALINE 99 ML IV PRN ×6 (21:00→21:15)
[2023-11-02] MEDS ORDERED: INSULIN REGULAR, HUMAN 100 UNITS in IV NORMAL SALINE 100 ML IV ONE ×2 (21:00)
[2023-11-02] MEDS ORDERED: HYDROMORPHONE 1 MG/1 ML DISP.SYRIN ONE (21:54)
[2023-11-02] MEDS ORDERED: HYDROMORPHONE 1 MG/1 ML DISP.SYRIN IV ONE (22:00)
[2023-11-02 23:16] LABS: CALCIUM 9.2 mg/dL (8.5-10.1); CREATININE 1.2 mg/dL (0.6-1.3); POTASSIUM 4.3 mmol/L (3.5-5.1)
[2023-11-02 23:22] LABS: ALBUMIN 2.9 g/dL (3.4-5.0); BILIRUBIN,TOTAL 0.5 mg/dL (0.2-1.0); TOTAL PROTEIN, SERUM 7.1 g/dL (6.4-8.2)
[2023-11-03] MEDS ORDERED: [UNRECOGNIZED DRUG - OTHER] IV ONE
[2023-11-03] MEDS ORDERED: D5W IV ONE
[2023-11-03] MEDS ORDERED: IV D5W-0.45% NS +20 KCL 1,000 ML IV ONE (00:07)
[2023-11-03] MEDS ORDERED: IV D5W-0.45% NS +20 KCL 1,000 ML IV PRN (01:00)
[2023-11-03] MEDS ORDERED: INSULIN REGULAR, HUMAN 100 UNIT in IV NORMAL SALINE 99 ML IV PRN ×2 (01:00)
[2023-11-03] MEDS ORDERED: HYDROMORPHONE 1 MG/1 ML DISP.SYRIN IV ONE ×2 (04:00→19:30)
[2023-11-03] MEDS ORDERED: HYDROMORPHONE 1 MG/1 ML DISP.SYRIN ONE ×2 (04:00→09:20)
[2023-11-03 05:20] LABS: BASOPHILS % (AUTO) 0.4 % (0.0-2.0); EOSINOPHILS # (AUTO) 0.1 K/uL (0.0-0.7); EOSINOPHILS % (AUTO) 1.7 % (0.0-7.0); HEMATOCRIT 39.6 % (31.2-41.9); HEMOGLOBIN 13.3 g/dL (10.9-14.3); LYMPHOCYTES # (AUTO) 2.2 K/uL (0.8-4.8); MEAN CORPUSCULAR HEMOGLOBIN 29.8 uug (24.7-32.8); MEAN CORPUSCULAR HGB CONC 34 g/dL (32.3-35.6); MEAN CORPUSCULAR VOLUME 88.5 fL (75.5-95.3); MONOCYTES # (AUTO) 0.9 K/uL (0.1-1.30); MONOCYTES % (AUTO) 11.5 % (0.0-11.0); NEUTROPHILS # (AUTO) 4.4 K/uL (1.8-8.9); NEUTROPHILS % (AUTO) 57.4 % (38.5-71.5); PLATELET COUNT (AUTO) 197 K/uL (179-408); RED BLOOD CELL COUNT(AUTO) 4.47 MIL/uL (3.63-4.92); RED CELL DISTRIBUTION WIDTH 16.4 % (12.3-17.7); WHITE BLOOD COUNT (AUTO) 7.7 K/uL (3.8-11.8)
[2023-11-03 05:24] LABS: DIFFERENTIAL COMMENT 1
[2023-11-03 05:37] LABS: CALCIUM 8.8 mg/dL (8.5-10.1); CREATININE 1.1 mg/dL (0.6-1.3); MAGNESIUM 1.8 mg/dL (1.8-2.4); PHOSPHOROUS 3.3 mg/dL (2.5-4.9); POTASSIUM 4.3 mmol/L (3.5-5.1)
[2023-11-03] MEDS ORDERED: IV 0.9% SODIUM CHLORID+ 20 KCL 1,000 ML ONE (06:42)
[2023-11-03] MEDS ORDERED: NORMAL SALINE IV ONE (07:00)
[2023-11-03] MEDS ORDERED: KCL IV ONE ×2 (07:00)
[2023-11-03 08:00] VITALS: BP 121/62; TEMP 98.9
[2023-11-03] MEDS ORDERED: PANTOPRAZOLE SODIUM 40 MG VIAL IV SCH (09:00)
[2023-11-03] MEDS ORDERED: BLOOD SUGAR DIAGNOSTIC 1 EACH STRIP VI SCH (09:00)
[2023-11-03 12:00] VITALS: BP 118/58
[2023-11-03 14:00] VITALS: BP 121/64
[2023-11-03] MEDS ORDERED: ACETAMINOPHEN 325 MG TABLET PO PRN (14:45)
[2023-11-03] MEDS ORDERED: ONDANSETRON 4 MG/2 ML VIAL IV PRN (15:45)
[2023-11-03] MEDS ORDERED: DEXTROSE 50% 50 ML DISP.SYRIN IV PRN (15:45)
[2023-11-03] MEDS: BLOOD SUGAR DIAGNOSTIC 1 EACH STRIP VI SCH ×2 (16:30→20:33)
[2023-11-03] MEDS: glipiZIDE 5 MG TABLET PO SCH (16:30)
[2023-11-03] MEDS ORDERED: HYDROCODONE/APAP 5-325MG TABLET ONE (16:37)
[2023-11-03] MEDS: HYDROCODONE/APAP 5-325MG TABLET PO PRN ×2 (16:38→22:08)
[2023-11-03] MEDS: METFORMIN HCL 500 MG TABLET PO SCH (18:00)
[2023-11-03 18:35] VITALS: BP 100/63; TEMP 98.4; O2SAT 98
[2023-11-03] MEDS ORDERED: HYDROMORPHONE 1 MG/1 ML DISP.SYRIN IV PRN (19:30)
[2023-11-03] MEDS: ATORVASTATIN 40 MG TABLET PO SCH (20:27)
[2023-11-03] MEDS: INSULIN REGULAR, HUMAN 300 UNIT/3 ML VIAL SQ PRN (22:07)
[2023-11-03] MEDS: ZOLPIDEM 5 MG TABLET PO PRN (23:03)
[2023-11-04] VITALS: BP 112/40; TEMP 98.6; O2SAT 98
[2023-11-04 01:20] LABS: CALCIUM 8.6 mg/dL (8.5-10.1); CREATININE 1.2 mg/dL (0.6-1.3); POTASSIUM 4.3 mmol/L (3.5-5.1)
[2023-11-04 04:00] VITALS: BP 101/70; TEMP 98.5; O2SAT 99
[2023-11-04] MEDS: PANTOPRAZOLE SODIUM 40 MG TABLET.DR PO SCH (07:09)
[2023-11-04 08:00] VITALS: BP 114/69; TEMP 98; O2SAT 99
[2023-11-04] MEDS: glipiZIDE 5 MG TABLET PO SCH (08:56)
[2023-11-04] MEDS: METFORMIN HCL 500 MG TABLET PO SCH ×2 (08:56→17:29)
[2023-11-04] MEDS: BLOOD SUGAR DIAGNOSTIC 1 EACH STRIP VI SCH ×4 (09:00→21:00)
[2023-11-04] MEDS: INSULIN REGULAR, HUMAN 300 UNIT/3 ML VIAL SQ PRN ×4 (09:00→22:32)
[2023-11-04] MEDS: HYDROCODONE/APAP 5-325MG TABLET PO PRN (09:13)
[2023-11-04] MEDS ORDERED: glipiZIDE 5 MG TABLET PO ONE (09:20)
[2023-11-04 11:55] VITALS: BP 114/69; TEMP 98.3; O2SAT 95
[2023-11-04] MEDS: HYDROMORPHONE 1 MG/1 ML DISP.SYRIN IV PRN ×3 (13:29→22:30)
[2023-11-04 16:50] VITALS: BP 102/61; TEMP 97.7; O2SAT 97
[2023-11-04] MEDS: glipiZIDE 10 MG TABLET PO SCH (17:29)
[2023-11-04 20:00] VITALS: BP 108/59; TEMP 98.3; O2SAT 96
[2023-11-04] MEDS: AMOXICILLIN-CLAVUL 875-125MG TABLET PO SCH (22:30)
[2023-11-04] MEDS: ATORVASTATIN 40 MG TABLET PO SCH (22:30)
[2023-11-04] MEDS: ZOLPIDEM 5 MG TABLET PO PRN (22:48)
[2023-11-05] VITALS: BP 108/59; TEMP 98.3; O2SAT 96
[2023-11-05 04:00] VITALS: BP 124/89; TEMP 97.9; O2SAT 96
[2023-11-05] MEDS: PANTOPRAZOLE SODIUM 40 MG TABLET.DR PO SCH (06:31)
[2023-11-05] MEDS: HYDROMORPHONE 1 MG/1 ML DISP.SYRIN IV PRN (06:31)
[2023-11-05] MEDS: BLOOD SUGAR DIAGNOSTIC 1 EACH STRIP VI SCH ×4 (06:32→20:19)
[2023-11-05 07:27] LABS: BASOPHILS % (AUTO) 0.6 % (0.0-2.0); EOSINOPHILS # (AUTO) 0.1 K/uL (0.0-0.7); EOSINOPHILS % (AUTO) 1.8 % (0.0-7.0); HEMATOCRIT 39.2 % (31.2-41.9); HEMOGLOBIN 12.8 g/dL (10.9-14.3); LYMPHOCYTES # (AUTO) 3.1 K/uL (0.8-4.8); LYMPHOCYTES % (AUTO) 46.1 % (20.5-51.5); MEAN CORPUSCULAR HEMOGLOBIN 29.2 uug (24.7-32.8); MEAN CORPUSCULAR HGB CONC 33 g/dL (32.3-35.6); MEAN CORPUSCULAR VOLUME 89.5 fL (75.5-95.3); MONOCYTES # (AUTO) 0.7 K/uL (0.1-1.30); MONOCYTES % (AUTO) 10.4 % (0.0-11.0); NEUTROPHILS # (AUTO) 2.8 K/uL (1.8-8.9); NEUTROPHILS % (AUTO) 41.1 % (38.5-71.5); PLATELET COUNT (AUTO) 196 K/uL (179-408); RED BLOOD CELL COUNT(AUTO) 4.38 MIL/uL (3.63-4.92); RED CELL DISTRIBUTION WIDTH 16.9 % (12.3-17.7); WHITE BLOOD COUNT (AUTO) 6.7 K/uL (3.8-11.8)
[2023-11-05 07:48] LABS: ALBUMIN 2.6 g/dL (3.4-5.0); BILIRUBIN,TOTAL 0.2 mg/dL (0.2-1.0); CALCIUM 9.3 mg/dL (8.5-10.1); CREATININE 0.7 mg/dL (0.6-1.3); MAGNESIUM 1.6 mg/dL (1.8-2.4); PHOSPHOROUS 3.6 mg/dL (2.5-4.9); POTASSIUM 3.9 mmol/L (3.5-5.1); TOTAL PROTEIN, SERUM 5.9 g/dL (6.4-8.2)
[2023-11-05 08:04] LABS: DIFFERENTIAL COMMENT 1
[2023-11-05] MEDS ORDERED: MAGNESIUM OXIDE 400 MG TABLET PO ONE (08:15)
[2023-11-05] MEDS: PIOGLITAZONE HCL 15 MG TABLET PO SCH (09:05)
[2023-11-05] MEDS: AMOXICILLIN-CLAVUL 875-125MG TABLET PO SCH ×2 (09:05→20:18)
[2023-11-05] MEDS: METFORMIN HCL 500 MG TABLET PO SCH ×2 (09:08→17:41)
[2023-11-05] MEDS: glipiZIDE 10 MG TABLET PO SCH ×2 (09:08→17:41)
[2023-11-05] MEDS: INSULIN REGULAR, HUMAN 300 UNIT/3 ML VIAL SQ PRN ×4 (09:13→20:23)
[2023-11-05] MEDS: HYDROCODONE/APAP 5-325MG TABLET PO PRN ×2 (09:32→17:43)
[2023-11-05] MEDS: SUMATRIPTAN SUCCINATE 50 MG TABLET PO PRN ×2 (12:38→20:19)
[2023-11-05 16:57] VITALS: BP 111/70; TEMP 97.7; O2SAT 96
[2023-11-05 20:15] VITALS: BP 116/72; TEMP 98.4; O2SAT 97
[2023-11-05] MEDS: ATORVASTATIN 40 MG TABLET PO SCH (20:19)
[2023-11-05] MEDS: ZOLPIDEM 5 MG TABLET PO PRN (20:58)
[2023-11-06 04:35] VITALS: BP 103/54; TEMP 98.4; O2SAT 100
[2023-11-06] MEDS: PANTOPRAZOLE SODIUM 40 MG TABLET.DR PO SCH (06:39)
[2023-11-06] MEDS: glipiZIDE 10 MG TABLET PO SCH (08:22)
[2023-11-06] MEDS: BLOOD SUGAR DIAGNOSTIC 1 EACH STRIP VI SCH ×2 (08:22→11:51)
[2023-11-06] MEDS: HYDROCODONE/APAP 5-325MG TABLET PO PRN (08:23)
[2023-11-06] MEDS: METFORMIN HCL 500 MG TABLET PO SCH (08:23)
[2023-11-06] MEDS: PIOGLITAZONE HCL 15 MG TABLET PO SCH (08:23)
[2023-11-06] MEDS: AMOXICILLIN-CLAVUL 875-125MG TABLET PO SCH (08:23)
[2023-11-06] MEDS: INSULIN REGULAR, HUMAN 300 UNIT/3 ML VIAL SQ PRN ×2 (08:24→11:53)
[2023-11-06 12:00] VITALS: BP 97/62; TEMP 97.2; O2SAT 97
[2023-11-06] MEDS ORDERED: SUMA50TA PO (14:06)
[2023-11-06] MEDS ORDERED: AMOX1TAB16 PO (14:06)
[2023-11-06] MEDS ORDERED: METF-440 PO (14:06)
[2023-11-06] MEDS ORDERED: ATOR40TA PO (14:06)
[2023-11-06] MEDS ORDERED: GLIP10TA11 PO (14:06)
[2023-11-06] MEDS ORDERED: PIOG15TA8 PO (14:06)
[2023-11-07] MEDS ORDERED: PIOGLITAZONE HCL 15 MG TABLET PO SCH (09:00)
== END 2023-11-06 16:15 | disposition home or self-care (01) | DRG 637 ==
LOC: ER 18:08 → TRANSITION 11-03 00:50 → TELE3 11-03 17:41 → MEDSURG3 11-05 08:51
PROVIDERS: ADMIT Nurse Practitioner Acute Care; ATTEND Internal Medicine
DX: E11.10 Type 2 diabetes mellitus with ketoacidosis without coma (principal); N17.0 Acute kidney failure with tubular necrosis; E44.0 Moderate protein-calorie malnutrition; E87.1 Hypo-osmolality and hyponatremia; D68.59 Other primary thrombophilia; E78.5 Hyperlipidemia, unspecified; J32.3 Chronic sphenoidal sinusitis; Z87.440 Personal history of urinary (tract) infections; R51.9 Headache, unspecified; S06.5XAS Traumatic subdural hemorrhage with loss of consciousness status unknown, sequela; X58.XXXS Exposure to other specified factors, sequela; E66.01 Morbid (severe) obesity due to excess calories; Z68.36 Body mass index [BMI] 36.0-36.9, adult; Z83.3 Family history of diabetes mellitus; Z90.710 Acquired absence of both cervix and uterus; E83.52 Hypercalcemia; E83.42 Hypomagnesemia; Z74.09 Other reduced mobility; E86.1 Hypovolemia; I10 Essential (primary) hypertension; R00.0 Tachycardia, unspecified
CPT/HCPCS: 36415; 36600; 70450; 70486; 71045; 83690; 83735; 84100; 84484; 85025; 93005; A4663; G0378; J1170; J1200; J1815; J2270; J2405; J2765; J7040; J7120

== ENCOUNTER 2023-12-12 20:05 | Emergency (ER) | payer OTHER ==
[~2023-12-12] VITALS: Ht 165.1 cm; Wt 99.8 kg
[~2023-12-12 20:05] MED LIST changes: -AMLO-212 PO; +AMOX1TAB16 PO; -DEXA4TAB2 PO; +GLIP10TA11 PO; -HYDR-3972 PO; -HYDR-3980 PO; -HYDR-4209 PO; -HYDR50TA68 PO; -LEVE500T9 PO; +METF-440 PO; -NAPR-1009 PO; +PIOG15TA8 PO; -SENN1TAB92 PO; -SULF1TAB48 PO; +SUMA50TA PO
[2023-12-12] MEDS ORDERED: KETOROLAC TROMETHAMINE 60 MG INJ IM ONE ×2 (20:12→20:15)
[2023-12-12] MEDS ORDERED: SEMA0.25 SQ (20:35)
[2023-12-12 21:07] VITALS: BP 128/79; O2SAT 97
[2023-12-13] MEDS ORDERED: ACETAMINOPHEN ES 500 MG TABLET ONE (01:22)
[2023-12-13] MEDS ORDERED: ACETAMINOPHEN ES 500 MG TABLET PO ONE (01:30)
== END 2023-12-12 21:10 | disposition home or self-care (01) ==
LOC: ER 20:14
DX: G56.01 Carpal tunnel syndrome, right upper limb (principal); M79.601 Pain in right arm; Z90.710 Acquired absence of both cervix and uterus; Z79.2 Long term (current) use of antibiotics; Z79.899 Other long term (current) drug therapy
CPT/HCPCS: 99283; 96372; J1885; A4606; A4663; A9150

== ENCOUNTER 2024-04-14 09:46 | Emergency (ER) | payer OTHER ==
[~2024-04-14] VITALS: Ht 165.1 cm; Wt 99.8 kg
[~2024-04-14 09:46] MED LIST changes: +SEMA0.25 SQ
[2024-04-14] MEDS ORDERED: METOCLOPRAMIDE HCL 10 MG TABLET ONE (10:18)
[2024-04-14] MEDS ORDERED: OXYCODONE/APAP 5-325 MG TABLET ONE (10:18)
[2024-04-14] MEDS: OXYCODONE/APAP 5-325 MG TABLET PO ONE (10:21)
[2024-04-14] MEDS: METOCLOPRAMIDE HCL 10 MG TABLET PO ONE (10:21)
[2024-04-14] MEDS ORDERED: HYDROMORPHONE 1 MG/1 ML DISP.SYRIN ONE (11:26)
[2024-04-14] MEDS: HYDROMORPHONE 1 MG/1 ML DISP.SYRIN IM ONE (11:31)
[2024-04-14] MEDS ORDERED: METO-295 PO (12:39)
[2024-04-14] MEDS ORDERED: OXYC-133 PO (12:39)
[2024-04-14 13:10] VITALS: BP 155/89; O2SAT 99
== END 2024-04-14 13:11 | disposition home or self-care (01) ==
LOC: ER 09:46
DX: R51.9 Headache, unspecified (principal); Z90.49 Acquired absence of other specified parts of digestive tract; Z79.899 Other long term (current) drug therapy
CPT/HCPCS: 99285; 70450; 96372; J1170; A4606; A4663; J8597

== ENCOUNTER 2024-04-17 15:36 | Emergency (ER) | payer OTHER ==
[~2024-04-17] VITALS: Ht 165.1 cm; Wt 99.8 kg
[~2024-04-17 15:36] MED LIST changes: +METO-295 PO; +OXYC-133 PO
[2024-04-17] MEDS ORDERED: PROCHLORPERAZINE EDISYLATE 10 MG/2 ML VIAL ONE (16:03)
[2024-04-17] MEDS ORDERED: HYDROMORPHONE 1 MG/1 ML DISP.SYRIN ONE (16:03)
[2024-04-17] MEDS: IV NORMAL SALINE 1000 ML BAG IV ONE (16:07)
[2024-04-17] MEDS: HYDROMORPHONE 1 MG/1 ML DISP.SYRIN IV ONE (16:07)
[2024-04-17] MEDS: PROCHLORPERAZINE EDISYLATE 10 MG/2 ML VIAL IV ONE (16:07)
[2024-04-17 16:14] LABS: RED BLOOD CELL COUNT(AUTO) 4.87 MIL/uL (3.63-4.92)
[2024-04-17 16:19] LABS: BASOPHILS # (AUTO) 0.1 K/UL (0.0-0.2); BASOPHILS % (AUTO) 0.8 % (0.0-2.0); DIFFERENTIAL COMMENT 0; EOSINOPHILS # (AUTO) 0.2 K/uL (0.0-0.7); EOSINOPHILS % (AUTO) 1.4 % (0.0-7.0); HEMATOCRIT 41.1 % (31.2-41.9); HEMOGLOBIN 13.9 g/dL (10.9-14.3); LYMPHOCYTES # (AUTO) 5.5 K/uL (0.8-4.8); LYMPHOCYTES % (AUTO) 38.5 % (20.5-51.5); MEAN CORPUSCULAR HEMOGLOBIN 28.5 uug (24.7-32.8); MEAN CORPUSCULAR HGB CONC 34 g/dL (32.3-35.6); MEAN CORPUSCULAR VOLUME 84.4 fL (75.5-95.3); MONOCYTES # (AUTO) 0.7 K/uL (0.1-1.30); MONOCYTES % (AUTO) 5.2 % (0.0-11.0); NEUTROPHILS # (AUTO) 7.7 K/uL (1.8-8.9); NEUTROPHILS % (AUTO) 54.1 % (38.5-71.5); PLATELET COUNT (AUTO) 398 K/uL (179-408); RED CELL DISTRIBUTION WIDTH 16.1 % (12.3-17.7); WHITE BLOOD COUNT (AUTO) 14.2 K/uL (3.8-11.8)
[2024-04-17 16:26] LABS: CALCIUM 8.6 mg/dL (8.5-10.1); CARBON DIOXIDE 28 mmol/L (21-32); CHLORIDE 104 mmol/L (98-107); CREATININE 0.7 mg/dL (0.6-1.3); GLUCOSE 95 mg/dL (74-106); POTASSIUM 3.9 mmol/L (3.5-5.1); SODIUM SERUM 139 mmol/L (136-145); UREA NITROGEN, BLOOD 9 mg/dL (7-18)
[2024-04-17 16:31] LABS: ALANINE AMINOTRANSFERASE 21 U/L (14-59); ALBUMIN 3.4 g/dL (3.4-5.0); ALKALINE PHOSPHATASE 93 U/L (50-136); ASPARTATE AMINOTRANSFERASE 9 U/L (15-37); BILIRUBIN,TOTAL 0.2 mg/dL (0.2-1.0); TOTAL PROTEIN, SERUM 7.9 g/dL (6.4-8.2)
[2024-04-17 16:33] LABS: BILIRUBIN,DIRECT < 0.1 mg/dL (0.0-0.2)
[2024-04-17 16:43] LABS: *BILIRUBIN,URIN NEGATIVE (NEGATIVE); *BLOOD, URINE NEGATIVE (NEGATIVE); *CLARITY,URINE CLEAR (CLEAR); *COLOR,URINE YELLOW (YELLOW); *KETONES,URINE NEGATIVE (NEGATIVE); *PROTEIN,URINE NEGATIVE (NEGATIVE); *UROBILINOGEN,URINE 0.2 E.U./dl (NORMAL); LEUKOCYTE ESTERASE ,URINE NEGATIVE (NEGATIVE); NITRITE, URINE NEGATIVE (NEGATIVE); PH,URINE 6.5 (5.0-8.0)
[2024-04-17 16:52] LABS: UGLUCOSE 1+ (NEGATIVE)
[2024-04-17 18:35] VITALS: BP 139/76; O2SAT 99
== END 2024-04-17 18:36 | disposition home or self-care (01) ==
LOC: ER 15:38
DX: R51.9 Headache, unspecified (principal); R11.2 Nausea with vomiting, unspecified; E11.9 Type 2 diabetes mellitus without complications; Z79.899 Other long term (current) drug therapy; Z90.49 Acquired absence of other specified parts of digestive tract; T50.905A Adverse effect of unspecified drugs, medicaments and biological substances, initial encounter; Y92.89 Other specified places as the place of occurrence of the external cause
CPT/HCPCS: 99285; 74176; 96374; 96361; 96375; 80076; 80048; 81003; 85025; 36415; J0780; J1170; J7040; A4606; A4663

== ENCOUNTER 2024-07-28 11:49 | Emergency (ER) | payer OTHER ==
[~2024-07-28] VITALS: Ht 165.1 cm; Wt 94.3 kg
[2024-07-28 12:23] LABS: BASOPHILS % (AUTO) 0.3 % (0.0-2.0); EOSINOPHILS # (AUTO) 0.1 K/uL (0.0-0.7); EOSINOPHILS % (AUTO) 0.6 % (0.0-7.0); HEMATOCRIT 39.9 % (31.2-41.9); HEMOGLOBIN 12.8 g/dL (10.9-14.3); LYMPHOCYTES # (AUTO) 4.1 K/uL (0.8-4.8); LYMPHOCYTES % (AUTO) 30.9 % (20.5-51.5); MEAN CORPUSCULAR HGB CONC 32 g/dL (32.3-35.6); MEAN CORPUSCULAR VOLUME 86.8 fL (75.5-95.3); MONOCYTES # (AUTO) 0.7 K/uL (0.1-1.30); MONOCYTES % (AUTO) 5.3 % (0.0-11.0); NEUTROPHILS # (AUTO) 8.3 K/uL (1.8-8.9); NEUTROPHILS % (AUTO) 62.9 % (38.5-71.5); PLATELET COUNT (AUTO) 329 K/uL (179-408); RED BLOOD CELL COUNT(AUTO) 4.59 MIL/uL (3.63-4.92); RED CELL DISTRIBUTION WIDTH 16.2 % (12.3-17.7); WHITE BLOOD COUNT (AUTO) 13.2 K/uL (3.8-11.8)
[2024-07-28 12:26] LABS: *BILIRUBIN,URIN NEGATIVE (NEGATIVE); *CLARITY,URINE CLEAR (CLEAR); *COLOR,URINE YELLOW (YELLOW); *KETONES,URINE NEGATIVE (NEGATIVE); *PROTEIN,URINE NEGATIVE (NEGATIVE); *UROBILINOGEN,URINE 0.2 E.U./dl (NORMAL); LEUKOCYTE ESTERASE ,URINE NEGATIVE (NEGATIVE); NITRITE, URINE NEGATIVE (NEGATIVE); PH,URINE 5.5 (5.0-8.0)
[2024-07-28 12:29] LABS: *BLOOD, URINE TRACE (NEGATIVE); UGLUCOSE 2+ (NEGATIVE)
[2024-07-28 12:31] LABS: CALCIUM 9.1 mg/dL (8.5-10.1); CARBON DIOXIDE 27 mmol/L (21-32); CHLORIDE 104 mmol/L (98-107); CREATININE 0.7 mg/dL (0.6-1.3); GLUCOSE 94 mg/dL (74-106); POTASSIUM 3.6 mmol/L (3.5-5.1); SODIUM SERUM 139 mmol/L (136-145); UREA NITROGEN, BLOOD 11 mg/dL (7-18)
[2024-07-28 12:32] LABS: DIFFERENTIAL COMMENT 1
[2024-07-28] MEDS ORDERED: KETOROLAC TROMETHAMINE 15 MG INJ ONE (12:35)
[2024-07-28] MEDS ORDERED: METOCLOPRAMIDE HCL 10 MG/2 ML VIAL ONE (12:35)
[2024-07-28 12:41] LABS: ALANINE AMINOTRANSFERASE 22 U/L (14-59); ALBUMIN 3.3 g/dL (3.4-5.0); ALKALINE PHOSPHATASE 88 U/L (50-136); ASPARTATE AMINOTRANSFERASE 8 U/L (15-37); BILIRUBIN,DIRECT 0.1 mg/dL (0.0-0.2); BILIRUBIN,TOTAL 0.3 mg/dL (0.2-1.0); LIPASE 58 U/L (16-77); TOTAL PROTEIN, SERUM 7.2 g/dL (6.4-8.2)
[2024-07-28] MEDS: METOCLOPRAMIDE HCL 10 MG/2 ML VIAL IV ONE (12:41)
[2024-07-28] MEDS: KETOROLAC TROMETHAMINE 15 MG INJ IVP ONE (12:42)
[2024-07-28] MEDS ORDERED: METO-295 PO (14:35)
[2024-07-28 14:47] VITALS: BP 141/78; O2SAT 99
[2024-07-28 15:07] LABS: BACTERIA,URINE FEW /HPF (NONE SEEN); RBC,URINE 0-3 /HPF (0-3); SQUAMOUS EPITHELIAL CELL,UR FEW /HPF (NONE SEEN); URINE AMORPHOUS URATE MODERATE /HPF; WBC,URINE 0-3 /HPF (0-3)
== END 2024-07-28 14:54 | disposition home or self-care (01) ==
LOC: ER 11:49
DX: R14.0 Abdominal distension (gaseous) (principal); G43.909 Migraine, unspecified, not intractable, without status migrainosus; E11.9 Type 2 diabetes mellitus without complications; Z90.49 Acquired absence of other specified parts of digestive tract; Z79.84 Long term (current) use of oral hypoglycemic drugs; Z79.899 Other long term (current) drug therapy
CPT/HCPCS: 99285; 74176; 96374; 71045; 96375; 80076; 80048; 81001; 83690; 85025; 85730; 84484; 36415; 93005; J1885; J2765; A4606; A4663

== ENCOUNTER 2024-12-08 15:53 | Emergency (ER) | payer OTHER ==
[~2024-12-08] VITALS: Ht 165.1 cm; Wt 93.0 kg
[2024-12-08] MEDS ORDERED: KETOROLAC TROMETHAMINE 15 MG INJ ONE (17:07)
[2024-12-08] MEDS ORDERED: METOCLOPRAMIDE HCL 10 MG/2 ML VIAL ONE (17:08)
[2024-12-08 17:09] LABS: BASOPHILS % (AUTO) 0.3 % (0.0-2.0); EOSINOPHILS % (AUTO) 0.2 % (0.0-7.0); HEMATOCRIT 37.5 % (31.2-41.9); HEMOGLOBIN 12.6 g/dL (10.9-14.3); LYMPHOCYTES # (AUTO) 1.6 K/uL (0.8-4.8); LYMPHOCYTES % (AUTO) 18.8 % (20.5-51.5); MEAN CORPUSCULAR HEMOGLOBIN 30.9 uug (24.7-32.8); MEAN CORPUSCULAR HGB CONC 34 g/dL (32.3-35.6); MEAN CORPUSCULAR VOLUME 91.5 fL (75.5-95.3); MONOCYTES # (AUTO) 0.8 K/uL (0.1-1.30); MONOCYTES % (AUTO) 8.8 % (0.0-11.0); NEUTROPHILS # (AUTO) 6.3 K/uL (1.8-8.9); NEUTROPHILS % (AUTO) 71.9 % (38.5-71.5); PLATELET COUNT (AUTO) 277 K/uL (179-408); WHITE BLOOD COUNT (AUTO) 8.7 K/uL (3.8-11.8)
[2024-12-08] MEDS: IV NORMAL SALINE 1000 ML BAG IV ONE (17:15)
[2024-12-08] MEDS: KETOROLAC TROMETHAMINE 15 MG INJ IVP ONE (17:15)
[2024-12-08] MEDS: METOCLOPRAMIDE HCL 10 MG/2 ML VIAL IV ONE (17:15)
[2024-12-08] MEDS ORDERED: diphenhydrAMINE 50 MG/1 ML VIAL ONE (17:20)
[2024-12-08] MEDS: diphenhydrAMINE 50 MG/1 ML VIAL IV ONE (17:24)
[2024-12-08] MEDS ORDERED: HYDROMORPHONE 1 MG/1 ML DISP.SYRIN ONE (17:39)
[2024-12-08] MEDS: HYDROMORPHONE 1 MG/1 ML DISP.SYRIN IV ONE (17:39)
[2024-12-08 17:54] LABS: ALANINE AMINOTRANSFERASE 43 U/L (14-59); ALBUMIN 3.3 g/dL (3.4-5.0); ALKALINE PHOSPHATASE 63 U/L (50-136); ASPARTATE AMINOTRANSFERASE 23 U/L (15-37); BILIRUBIN,DIRECT 0.1 mg/dL (0.0-0.2); BILIRUBIN,TOTAL 0.2 mg/dL (0.2-1.0); CARBON DIOXIDE 25 mmol/L (21-32); CHLORIDE 107 mmol/L (98-107); CREATININE 0.7 mg/dL (0.6-1.3); GLUCOSE 98 mg/dL (74-106); LIPASE 23 U/L (16-77); SODIUM SERUM 146 mmol/L (136-145); UREA NITROGEN, BLOOD 12 mg/dL (7-18)
[2024-12-08 18:02] LABS: DIFFERENTIAL COMMENT 1
[2024-12-08 21:09] VITALS: BP 150/88; TEMP 98; O2SAT 99
== END 2024-12-08 21:09 | disposition home or self-care (01) ==
LOC: ER 15:53
DX: R51.9 Headache, unspecified (principal); R11.2 Nausea with vomiting, unspecified; R53.81 Other malaise; M79.10 Myalgia, unspecified site; E11.9 Type 2 diabetes mellitus without complications; Z79.84 Long term (current) use of oral hypoglycemic drugs; Z79.85 Long-term (current) use of injectable non-insulin antidiabetic drugs; Z85.3 Personal history of malignant neoplasm of breast; Z87.820 Personal history of traumatic brain injury; Z90.710 Acquired absence of both cervix and uterus
CPT/HCPCS: 99284; 96374; 96375; 96361; 80076; 80048; 83690; 85025; 84484; 36415; J1885; J1171; J1200; J2765; J7040; A4606; A4663